=== PATIENT | female | born 1965 | race Caucasian/White ===

== ENCOUNTER 2019-12-13 09:17 | Outpatient (CLI) | payer OTHER ==
--- NOTE | 2019-12-13 16:29 | CT Report ---
Reason: FRACTURE OF LEFT HUMERUS Procedure Date: 12/13/2019 Accession Number: [id number] / [id number] Procedure: CT - UPPER EXTREMITY WO - LT CPT Code: Final Report FULL RESULT: EXAM: LEFT SHOULDER CT WITHOUT CONTRAST EXAM DATE: 12/13/2019 09:45 AM. CLINICAL HISTORY: Fracture of left humerus. COMPARISON: ORTHO LEFT SHOULDER 11/19/2019 11:52 AM. TECHNIQUE: Thin-section axial images were acquired of the shoulder without contrast. Post-processing: Coronal and sagittal reformats. Other: 3D reconstructions of left shoulder. In accordance with CT protocol optimization, one or more of the following dose reduction techniques were utilized for this exam: automated exposure control, adjustment of mA and/or KV based on patient size, or use of iterative reconstructive technique. FINDINGS: Bones: 1. Comminuted displaced transverse fracture of the proximal humerus surgical neck with 40 degree posterior angulation and 24 degree medial angulation fracture apex. 2. There is 1.3 cm lateral displacement and 1.1 cm posterior displacement of the humerus shaft. 3. Posterior 1.8 cm and lateral 1.2 cm humerus shaft fracture impaction. 4. Comminuted fracture is noted of the greater tuberosity, 3 cm in height and 3.9 cm in AP dimension with maximum 5 mm displacement. Joints: Moderate hemarthrosis. Mild osteoarthritis of the AC joint. Negative for humerus head dislocation. Narrowing of the coracohumeral distance. Musculature: Normal. No fatty atrophy. Other: The visualized lungs are unremarkable. No lymphadenopathy in the visualized axilla. IMPRESSION: 1. Neer classification 2-part fracture of the proximal humerus surgical neck and greater tuberosity.2. Comminuted transverse fracture of the proximal humerus surgical neck with 1.3 cm lateral displacement, 1.1 cm posterior displacement, posterior 1.8 cm impaction, lateral 1.2 cm humerus shaft impaction, 40 degree posterior angulation fracture apex and 24 degree medial angulation fracture apex. 3. Comminuted fracture of the greater tuberosity, 3 cm in height and 3.9 cm in AP dimension with 5 mm lateral fracture displacement. 4. Moderate hemarthrosis. [facility]
== END 2019-12-13 09:18 | disposition home or self-care (01) ==
LOC: DI 09:17
PROVIDERS: ATTEND Orthopaedic Surgery
DX: S42.212D Unspecified displaced fracture of surgical neck of left humerus, subsequent encounter for fracture with routine healing (principal); S42.252D Displaced fracture of greater tuberosity of left humerus, subsequent encounter for fracture with routine healing; M19.012 Primary osteoarthritis, left shoulder